=== PATIENT | female | born 2000 | race Hispanic/Latino ===

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

== ENCOUNTER 2019-07-16 18:09 | Emergency (ER) | payer SELFPAY ==
[2019-07-16] MEDS ORDERED: SULFA/TRIMETH 800/160 (DS) TAB 1 EA TAB PO ONE (18:24)
[2019-07-16] MEDS ORDERED: TETANUS,DIPHTHERIA,PERTUSSIS 1 EA SYG IM ONE (18:24)
[2019-07-16] MEDS ORDERED: CEPHALEXIN MONOHYDRATE 500 MG CAP PO ONE (18:24)
[2019-07-16 18:25] VITALS: BP 114/78; TEMP 97.9; O2SAT 97
--- NOTE | 2019-07-16 18:27 | ED.PDOC ---
History of Present Illness - General Chief Complaint: Lower Extremity Injury Stated Complaint: puncture wound to left foot Time Seen by Provider: 07/16/19 18:14 Source: patient Exam Limitations: no limitations - History of Present Illness Initial Comments: The patient is a 19-year-old female presents emergency room after having stepped on a nail with her left foot about 2-1/2 days ago. She is having some increased soreness. There is no significant erythema. There is no drainage. No palpable deformity. No bony crepitus. Sensation is preserved. The nail went in over th e head of the fourth meta tarsal. No evidence of pain in the metacarpal phalangeal joint. Again no extending erythema. No palpable abscess. Timing/Duration: other - About 60 hours Severity: moderate Improving Factors: immobilization Worsening Factors: movement Associated Symptoms: denies symptoms Allergies/Adverse Reactions: Allergies Penicillins Allergy (Verified 07/16/19 18:23) Home Medications: Ambulatory Orders Ondansetron Odt [Zofran ODT] 4 mg PO TID #12 tab 12/23/18 Review of Systems - Review of Systems Constitutional: States: no symptoms reported EENTM: States: no symptoms reported Respiratory: States: no symptoms reported Cardiology: States: no symptoms reported Gastrointestinal/Abdominal: States: no symptoms reported Genitourinary: States: no symptoms reported Musculoskeletal: States: see HPI Skin: States: see HPI Neurological: States: no symptoms reported Endocrine: States: no symptoms reported All other Systems: No Change from Baseline Past Medical History (General) - Patient Medical History Hx Stroke: No Hx of COPD: No Hx Cardiac Disorders: No Hx Congestive Heart Failure: No Hx Hypertension: No Hx Diabetes: No Hx Cancer: No Surgical History: tonsillectomy - Vaccination History Hx Tetanus, Diphtheria Vaccination: - unknown Hx Influenza Vaccination: No - Social History Hx Tobacco Use: Yes Hx Alcohol Use: No Hx Substance Use: No Hx Substance Use Treatment: No Hx Depression: No - Female History Patient is a Female of Child Bearing Age (10 -59 yrs old): Yes Hx Last Menstrual Period: 11/16/18 Patient : No Family Medical History - Family History Mother Family History: Unknown Physical Exam - Physical Exam General Appearance: Alert, Comfortable, No apparent distress Eye Exam: bilateral normal Ears, Nose, Throat: hearing grossly normal Neck: non-tender, supple Respiratory: no respiratory distress, no accessory muscle use Cardiovascular/Chest: normal peripheral pulses, no edema Peripheral Pulses: dorsalis pedis,right: 2+, dorsalis pedis,left: 2+ Rectal Exam: deferred Extremity: normal range of motion, no pedal edema, no calf tenderness, normal capillary refill, other - See history of present illness Neurologic: hand picker II-XII nml as tested, alert, normal mood/affect, oriented x 3 Skin Exam: normal color - Puncture wound is healed over Comments: Vital Signs - 24 hr 07/16/19 18:20 Temperature 97.9 F Pulse Rate [ 69 Left Brachial] Respiratory 16 Rate Blood Pressure 114/78 [Left Arm] O2 Sat by Pulse 97 Oximetry Progress - Progress Progress: 07/16/19 18:27 The patient is a 19-year-old female presented emergency room secondary to pain from a nail puncture wound to the plantar aspect of her left foot about 2-1/2 days ago. There is no extending erythema, no drainage and no obvious abscess formation. No evidence of any bony or joint abnormality. She has neurovascularly intact. The patient is going to be placed on Bactrim and Keflex for the next 7 days. She did receive a tetanus shot. She does need to return to the emergency room or her primary care doctor for any worsening whatsoever. ER warnings are given. erna ríos [id number] Departure - Departure Clinical Impression: Nail wound of left foot Qualifiers: Encounter type: initial encounter Qualified Code(s): S91.332A - Puncture wound without foreign body, left foot, initial encounter Disposition: Discharge to Home or Self Care Condition: Fair Departure Forms: ED Discharge - Pt. Copy, Patient Portal Self Enrollment Instructions: DI for Leg Pain Diet: regular diet Activity: increase activity as tolerated Home Medications: Ambulatory Orders Ondansetron Odt [Zofran ODT] 4 mg PO TID #12 tab 12/23/18 Additional Instructions: The patient is a 19-year-old female presented emergency room secondary to pain from a nail puncture wound to the plantar aspect of her left foot about 2-1/2 days ago. There is no extending erythema, no drainage and no obvious abscess formation. No evidence of any bony or joint abnormality. She has neurovascularly intact. The patient is going to be placed on Bactrim and Keflex for the next 7 days. She did receive a tetanus shot. She does need to return to the emergency room or her primary care doctor for any worsening whatsoever. ER warnings are given.
== END 2019-07-16 18:48 | disposition home or self-care (01) ==
LOC: ER 18:09
DX: S91.332A Puncture wound without foreign body, left foot, initial encounter (principal); F17.200 Nicotine dependence, unspecified, uncomplicated; W45.0XXA Nail entering through skin, initial encounter; Y92.9 Unspecified place or not applicable

== ENCOUNTER 2019-10-12 10:55 | Emergency (ER) | payer SELFPAY ==
--- NOTE | 2019-10-12 11:28 | ED.PDOC ---
History of Present Illness - General Time Seen by Provider: 10/12/19 11:22 Additional Information: Patient presents to the ED with chief complaint of "knots" in her breasts for the past several weeks. Patient is slightly late for her period and she has taken 5 home test and all have been negative. Patient indicates her breasts are slightly more tender than usual and when she palpates them she feels lumps. She thinks the lumps might be a bit bigger than usual but is unsure. Adair hurtado denies nausea, vomiting, fever, chills, chest pain, shortness of breath. She denies nipple discharge. Patient indicates she does not have a personal or family history of breast cancer. Patient is otherwise asymptomatic with no other concerns today. - History of Present Illness Allergies/Adverse Reactions: Allergies Penicillins Allergy (Verified 10/12/19 11:31) Review of Systems - Review of Systems Constitutional: States: no symptoms reported. Denies: chills, fever EENTM: States: no symptoms reported Respiratory: States: no symptoms reported. Denies: cough, short of breath Cardiology: States: no symptoms reported. Denies: chest pain, palpitations Gastrointestinal/Abdominal: States: no symptoms reported. Denies: abdominal pain, nausea, vomiting Genitourinary: States: no symptoms reported Musculoskeletal: States: see HPI Skin: Denies: rash Neurological: States: no symptoms reported All other Systems: Reviewed and Negative Past Medical History (General) - Patient Medical History Hx Stroke: No Hx of COPD: No Hx Cardiac Disorders: No Hx Congestive Heart Failure: No Hx Hypertension: No Hx Diabetes: No Hx Cancer: No - Vaccination History Hx Tetanus, Diphtheria Vaccination: - unknown Hx Influenza Vaccination: No - Social History Hx Tobacco Use: Yes Hx Alcohol Use: No Hx Substance Use: No Hx Substance Use Treatment: No Hx Depression: No - Female History Hx Last Menstrual Period: 11/16/18 Patient : No Family Medical History - Family History Mother Family History: Unknown Physical Exam - Physical Exam General Appearance: Alert, Comfortable, No apparent distress, Well Developed, Well Nourished Neck: supple, normal inspection Respiratory: chest non-tender, lungs clear, normal breath sounds, no respiratory distress, no accessory muscle use, other - Normal inspection bilateral lateral breast. Negative erythema edema or tenderness to palpation. Patient with medium sized breasts with several fibrocystic masses palpable bilaterally. These are firm and mobile. Cardiovascular/Chest: normal peripheral pulses, regular rate, rhythm, no edema, no gallop, no JVD, no murmur Lymphatic: no adenopathy Progress - Progress Progress: 10/12/19 11:30 Patient reassured that she has a normal breast exam with what appear to be fibrocystic masses bilaterally. I discussed with patient that there is no indication for formal ED work-up today but she should follow-up with a PCP for outpatient mammography for confirmation. Will obtain ED test but anticipate this will be negative given her negative home test. Vital signs stable, patient is NAD and looks clinically well and I believe is safe for discharge with outpatient follow-up. Follow-up instructions, discharge instructions and return to ED precautions discussed with patient. Patient voices understanding and willingness to comply with instructions. All questions answered. Patient is happy with plan. Departure - Departure Clinical Impression: Fibrocystic breast changes of both breasts Time of Disposition: 12:16 Disposition: Discharge to Home or Self Care Condition: Good Instructions: Fibrocystic Breast Changes (DC) Referrals: YOUNG JARAMILLO MD [Active Staff] - 1-2 Weeks Comments: Followup with a PCP to arrange for outpatient mammogram for further evaluation.
[2019-10-12 11:31] VITALS: TEMP 97.6; O2SAT 99
[2019-10-12 12:16] VITALS: BP 106/76
== END 2019-10-12 12:25 | disposition home or self-care (01) ==
LOC: ER 10:55
DX: N60.12 Diffuse cystic mastopathy of left breast (principal); N60.11 Diffuse cystic mastopathy of right breast; Z87.891 Personal history of nicotine dependence

== ENCOUNTER 2019-12-17 10:14 | Emergency (ER) | payer SELFPAY ==
[2019-12-17] MEDS ORDERED: ONDANSETRON INJ 4 MG/2 ML VIAL IV ONE (10:23)
[2019-12-17] MEDS ORDERED: SODIUM CHLORIDE 0.9% (FLUSH) 10 ML SYG IV PRN (10:23)
[2019-12-17] MEDS ORDERED: SODIUM CHLORIDE 0.9% 1000ML 1,000 ML IVS ONE ×2 (10:24→11:00)
--- NOTE | 2019-12-17 10:25 | ED.PDOC ---
History of Present Illness - General Chief Complaint: ENT Problem Stated Complaint: sore throat,WALTER,vomiting Time Seen by Provider: 12/17/19 10:23 Source: patient - History of Present Illness Initial Comments: 19 yo female who presents with chief complaint of vomiting and body aches. Patient reports onset of illness about 6 days ago with gradual worsening. She was seen in the clinic 4 days ago and tested for COVID-19 which was negative at that time. Patient reports symptoms of diffuse body aches, nausea with emesis, poor appetite, intermittent subjective fevers/chills, headache, malaise, congestion, dry cough, sore throat. She states that her last menstrual period was 8 and she was concerned she might be . She took an at home test 2 days ago which was lightly positive. She reports she has been having daily episodes of nausea which have been worse in the morning but now is constant throughout the day. She had 2 episodes of light orange-colored emesis last night and 3 more episodes since this morning. She reports her body aches and nausea as moderate severity. She reports sore throat and burning down her entire throat as well. She has taken some Tylenol at home with little relief of symptoms. She reports that her nephew is in daycare and some of the kids there have recently tested positive for COVID-19. She works at [employer]. Denies chest pain, dyspnea, dysuria/hematuria, leg swelling. Reports she has never been . No prior abd surgeries. Allergies/Adverse Reactions: Allergies Penicillins Allergy (Verified 10/12/19 11:31) Home Medications: Ambulatory Orders Azithromycin Tab [Zithromax Tab] 250 mg PO DAILY 4 Days #4 tab 12/17/19 Ondansetron Odt [Zofran ODT] 8 mg PO Q8H PRN 5 Days #10 tab 12/17/19 Review of Systems - Review of Systems Review of Systems: 12/17/19 10:40 as per HPI All other Systems: Reviewed and Negative Past Medical History (General) - Patient Medical History Hx Stroke: No Hx of COPD: No Hx Cardiac Disorders: No Hx Congestive Heart Failure: No Hx Hypertension: No Hx Diabetes: No Hx Cancer: No - Vaccination History Hx Tetanus, Diphtheria Vaccination: - unknown Hx Influenza Vaccination: No - Social History Hx Tobacco Use: Yes Hx Alcohol Use: No Hx Substance Use: No Hx Substance Use Treatment: No Hx Depression: No - Female History Hx Last Menstrual Period: 11/16/18 Patient : No Family Medical History - Family History Mother Family History: Unknown Living Status: Still Living Hx Family Hypertension: Yes Physical Exam - Physical Exam General Appearance: Alert, Comfortable, No apparent distress Eye Exam: bilateral normal Ears, Nose, Throat: hearing grossly normal, pharyngeal erythema, other - No tonsillar swelling or exudate Neck: normal inspection, lymphadenopathy (R), lymphadenopathy (L) Respiratory: lungs clear, normal breath sounds, no respiratory distress, no accessory muscle use Cardiovascular/Chest: normal peripheral pulses, no edema, no gallop, no JVD, no murmur, tachycardia Peripheral Pulses: radial,right: 2+, radial,left: 2+ Gastrointestinal/Abdominal: soft, abnormal bowel sounds - diminished, tenderness - mild ttp LLQ & epigastric region w/o rebound or guarding Back Exam: normal inspection, no CVA tenderness, no vertebral tenderness Extremity: normal range of motion, non-tender, normal inspection, no pedal edema , no calf tenderness, normal capillary refill Neurologic: supervisor front II-XII nml as tested, no motor/sensory deficits, alert, normal mood/affect, oriented x 3 Skin Exam: normal color, warm/dry Progress - Progress Progress: 12/17/19 10:41 Nausea vomiting, sore throat -Consider , viral infection, strep pharyngitis, COVID-19, influenza, UTI, gastroenteritis, pancreatitis, gastritis, acute cholecystitis, sepsis, other -Patient with tachycardia upon arrival but otherwise stable -Obtain stat sepsis work-up, swabs for COVID-19/flu/strep, serum test -Place peripheral IV, 1 L normal saline bolus, Zofran 4 mg IV 12/17/19 13:38 -Patient reports body aches and headache improving. Remains stable, tachycardia resolved. Labs reveal serum WBC 17,400 with 92% segs and no bands, lactate 0.8. Rapid flu/strep/COVID testing negative. Serum hcg neg. UA unremarkable. T bili slightly elevated 1.7 (1.5 indirect), which I suspect is c/w acute illness. CXR & CT A/P obtained which show no acute processes. -Still strongly suspicious for strep pharyngitis although rapid testing is negative. Thus will treat with antibioticsRocephin 1 g IV and azithromycin 500 mg p.o. in the ED. Prescription for azithromycin 250 mg p.o. daily for 4 more days given. Zofran as needed prescription also given. Will discharge home in fair condition, return warnings discussed at length. Jaguar Blanc MD Billing #[id number] 12/17/19 10:23 Sodium Chloride 0.9% (Flush) [Saline Flush Syringe] 10 ml IV PRN PRN 12/17/19 10:45 STREP A SCREEN CULTURE Stat 12/17/19 11:23 Hold Metformin x 48Hrs [id number] 12/17/19 13:20 Promethazine HCl Inj [Phenergan Inj] 12.5 mg Sodium Chloride 0.9% 50Ml [NS 50ml] 50 ml IVPB ONCE cefTRIAXone SODIUM [Rocephin] 1 gm Sodium Chl 0.9% 50Ml Min-Bag+ [NS 50ml MINI-BAG+] 50 ml IVPB ONCE Laboratory Results - last 24 hr 12/17/19 12/17/19 12/17/19 10:45 10:45 10:45 WBC 17.4 H RBC 4.94 Hgb 15.1 Hct 43.7 MCV 88.4 MCH 30.5 MCHC 34.5 RDW 12.8 Plt Count 195 MPV 9.2 Absolute Neuts (auto) 16.00 H Absolute Lymphs (auto) 0.80 L Absolute Monos (auto) 0.50 Absolute Eos (auto) 0.00 Absolute Basos (auto) 0.00 Neutrophils % 92.1 H Lymphocytes % 4.6 L Monocytes % 3.2 Eosinophils % 0.0 L Basophils % 0.1 Sodium 135 Potassium 3.8 Chloride 98 L Carbon Dioxide 25 Anion Gap 15.8 BUN 11 Creatinine 0.58 L BUN/Creatinine Ratio 19.0 Random Glucose 88 Serum Osmolality 268.9 L Lactic Acid Calcium 9.2 Total Bilirubin 1.7 H Direct Bilirubin 0.2 Indirect Bilirubin 1.5 H AST 23 ALT 19 Alkaline Phosphatase 86 Serum Total Protein 8.6 H Albumin 4.9 Lipase 30 Serum HCG, Qual Negative Urine Color Urine Appearance Urine pH Ur Specific [place] Urine Protein Urine Glucose (UA) Urine Ketones Urine Blood Urine Nitrite Urine Bilirubin Urine Urobilinogen Ur Leukocyte Esterase Urine RBC Urine WBC Ur Epithelial Cells Urine Bacteria Group A Strep Rapid 11/10/20 11/10/20 11/10/20 10:45 10:45 12:36 WBC RBC Hgb Hct MCV MCH MCHC RDW Plt Count MPV Absolute Neuts (auto) Absolute Lymphs (auto) Absolute Monos (auto) Absolute Eos (auto) Absolute Basos (auto) Neutrophils % Lymphocytes % Monocytes % Eosinophils % Basophils % Sodium Potassium Chloride Carbon Dioxide Anion Gap BUN Creatinine BUN/Creatinine Ratio Random Glucose Serum Osmolality Lactic Acid 0.8 Calcium Total Bilirubin Direct Bilirubin Indirect Bilirubin AST ALT Alkaline Phosphatase Serum Total Protein Albumin Lipase Serum HCG, Qual Urine Color Yellow Urine Appearance Clear Urine pH 7.0 Ur Specific [place] 1.010 Urine Protein Negative Urine Glucose (UA) Negative Urine Ketones >=160 Urine Blood Negative Urine Nitrite Negative Urine Bilirubin Negative Urine Urobilinogen 0.2 Ur Leukocyte Esterase Negative Urine RBC 0 Urine WBC 1-3 Ur Epithelial Cells 10-20 Urine Bacteria Rare Group A Strep Rapid Negative Departure - Departure Clinical Impression: Acute gastroenteritis Pharyngitis Qualifiers: Pharyngitis/tonsillitis etiology: unspecified etiology Qualified Code(s): J02.9 - Acute pharyngitis, unspecified Time of Disposition: 13:35 Disposition: Discharge to Home or Self Care Condition: Good Departure Forms: ED Discharge - Pt. Copy, Patient Portal Self Enrollment Instructions: DI for Ear Pain-Adult, Sore Throat, Adult (DC) Diet: resume usual diet Activity: increase activity as tolerated Prescriptions: Azithromycin Tab [Zithromax Tab] 250 mg PO DAILY 4 Days #4 tab Ondansetron Odt [Zofran ODT] 8 mg PO Q8H PRN 5 Days #10 tab PRN Reason: Nausea Home Medications: Ambulatory Orders Azithromycin Tab [Zithromax Tab] 250 mg PO DAILY 4 Days #4 tab 12/17/19 Ondansetron Odt [Zofran ODT] 8 mg PO Q8H PRN 5 Days #10 tab 12/17/19 Additional Instructions: Remain well-hydrated and gradually advance your diet and activity level as tolerated. Take the antibiotics as directed and finish the full course even if well. You may continue to take [id number] medications as needed for pain such as Tylenol 650 mg every 6 hours as needed and ibuprofen 6 mg every 6 hours as needed. You may take the Zofran as directed for nausea. Return the ED if you develop any concerning symptoms such as worsening abdominal pain, intractable nausea and vomiting, worsening throat pain, muffled voice, trouble swallowing, chest pain, shortness of breath, etc. Follow-up with your primary care physician is recommended in the next 1 to 2 weeks for repeat evaluation or sooner as needed.
--- NOTE | 2019-12-17 12:16 | RAD ---
EXAM DESCRIPTION: Chest,1 View CLINICAL HISTORY: 19 years Female, cough, fevers COMPARISON: 12/23/2018 TECHNIQUE: Single view radiograph of the chest. IMPRESSION: Normal size cardiac silhouette. No lobar or masslike consolidation. No pleural effusion or pneumothorax. Included osseous structures intact. Electronically signed by: Bryon Gómez MD 12/17/2019 12:15 PM [employer]
--- NOTE | 2019-12-17 12:18 | CT ---
EXAM DESCRIPTION: CT ABDOMEN AND PELVIS WITH CONTRAST CLINICAL HISTORY: fevers, vomiting, elevated bilirubin COMPARISON: None TECHNIQUE: CT of the abdomen and pelvis are performed during IV bolus administration of 100 mL of IV contrast. FINDINGS: The lung bases are clear. Liver is normal in size and parenchymal appearance. Spleen, pancreas, and kidneys are unremarkable. There is no lymphadenopathy, inflammation, or free fluid observed. IMPRESSION: Negative This exam was performed according to our departmental dose-optimization program, which includes automated exposure control, adjustment of the mA and/or kV according to patient size and/or use of iterative reconstruction technique. Electronically signed by: Keith Merritt MD 12/17/2019 12:16 PM [facility]
[2019-12-17] MEDS ORDERED: KETOROLAC TROMETHAMINE INJ 30 MG/ML VIAL IV ONE (13:20)
[2019-12-17] MEDS ORDERED: PROMETHAZINE HCL INJ 12.5 MG in SODIUM CHLORIDE 0.9% 50ML 50 ML IVPB ONE (13:20)
[2019-12-17] MEDS ORDERED: AZITHROMYCIN 250 MG TAB PO ONE (13:20)
[2019-12-17] MEDS ORDERED: cefTRIAXone SODIUM 1 GM in SODIUM CHL 0.9% 50ML MIN-BAG+ 50 ML IVPB ONE (13:20)
[2019-12-17 15:56] VITALS: BP 88/68; TEMP 97.4; O2SAT 97
== END 2019-12-17 15:35 | disposition home or self-care (01) ==
LOC: ER 10:14
DX: K52.9 Noninfective gastroenteritis and colitis, unspecified (principal); J02.9 Acute pharyngitis, unspecified; Z32.02 Encounter for pregnancy test, result negative; Z20.828 Contact with and (suspected) exposure to other viral communicable diseases; Z88.0 Allergy status to penicillin; Z87.891 Personal history of nicotine dependence
CPT/HCPCS: 36415; 71045; 74177; 80048; 80076; 81001; 83605; 83690; 84703; 85025; 87070; 87502; 87635; 87880; A4216; J0696; J1885; J2405; J2550; J7030; J7050; Q0144

== ENCOUNTER → 2020-03-04 | Outpatient (CLI) | payer MEDICAID | LOC: YCFC.O 14:59 | PROVIDERS: ATTEND Family Medicine | DX: Z00.00 Encounter for general adult medical examination without abnormal findings (principal) ==